=== PATIENT | male | born 1960 | race American Indian/Alaskan Native ===

== ENCOUNTER 2017-09-16 14:47 | Emergency (ER) | payer MEDICARE ==
[2017-09-16 15:03] VITALS: BP 156/89
[2017-09-16] MEDS ORDERED: MOTRIN PO ONE (19:05)
[2017-09-16] MEDS ORDERED: TYLENOL PO ONE (19:05)
--- NOTE | 2017-09-16 20:17 | Emergency Department Report ---
ED General Adult HPI - General Chief complaint: Pain General Stated complaint: RIGHT FOOT PAIN/GUMS SORE Time Seen by Provider: 09/16/17 18:10 Source: patient Mode of arrival: Ambulatory Limitations: No Limitations - History of Present Illness Initial comments: Patient is a 57-year-old male past history of HIV who presents with right foot pain and sore gums. She states that pain is a 7 out of 10 located in his foot and his gums nothing makes the foot pain better. However walking and eating makes the gum pain worse. He states that these problems have been going on for the last. He denies having any fevers or chills or any night sweats. Severity scale (0 -10): 0 - Related Data Previous Rx's Medication Instructions Recorded Last Taken Type Abacavir Sulfate/Lamivudine 1 each PO DAILY #30 tablet 03/06/16 Unknown Rx [Epzicom TAB] Clindamycin [Clindamycin CAP] 150 mg PO QID #30 capsule 07/18/16 Unknown Rx HYDROcodone/APAP 5-325 [[place] 1 each PO Q6HR PRN #14 tablet 07/18/16 Unknown Rx 5/325] Abacavir Sulfate/Lamivudine 1 each PO DAILY #30 tablet 09/16/17 Unknown Rx [Abacavir-Lamivudine 600-300 mg] Darunavir [Prezista] 600 mg PO BID #60 tablet 09/16/17 Unknown Rx Diclofenac Sodium [Voltaren] 100 gm TP Q6H #1 gel..gram. 09/16/17 Unknown Rx Losartan [Cozaar] 25 mg PO QDAY #30 tablet 09/16/17 Unknown Rx Ritonavir [Norvir] 100 mg PO BID #60 cap 09/16/17 Unknown Rx Allergies Allergy/AdvReac Type Severity Reaction Status Date / Time No Known Allergies Allergy Verified 07/17/16 23:33 ED Review of Systems ROS: Stated complaint: RIGHT FOOT PAIN/GUMS SORE Other details as noted in HPI Constitutional: denies: chills, fever Eyes: denies: eye pain, eye discharge, vision change ENT: other (sore gums ). denies: ear pain, throat pain Respiratory: denies: cough, shortness of breath, wheezing Cardiovascular: denies: chest pain, palpitations Endocrine: no symptoms reported Gastrointestinal: denies: abdominal pain, nausea, diarrhea Genitourinary: denies: urgency, dysuria Musculoskeletal: other (foot pain ). denies: back pain, joint swelling, arthralgia Skin: denies: rash, lesions Neurological: denies: headache, weakness, paresthesias Psychiatric: denies: anxiety, depression Hematological/Lymphatic: denies: easy bleeding, easy bruising ED Past Medical Hx - Past Medical History Previous Medical History?: Yes Hx Hypertension: Yes Hx HIV: Yes Additional medical history: gastroparesis - Surgical History Past Surgical History?: Yes Additional Surgical History: hemrrhoid. right knee surgery - Social History Smoking Status: Current Every Day Smoker Substance Use Type: Alcohol, Prescribed - Medications Home Medications: Home Medications Medication Instructions Recorded Confirmed Last Taken Type Abacavir Sulfate/Lamivudine 1 each PO DAILY #30 tablet 03/06/16 07/18/16 Unknown Rx [Epzicom TAB] Clindamycin [Clindamycin CAP] 150 mg PO QID #30 capsule 07/18/16 Unknown Rx HYDROcodone/APAP 5-325 [[place] 1 each PO Q6HR PRN #14 tablet 07/18/16 Unknown Rx 5/325] Abacavir Sulfate/Lamivudine 1 each PO DAILY #30 tablet 09/16/17 Unknown Rx [Abacavir-Lamivudine 600-300 mg] Darunavir [Prezista] 600 mg PO BID #60 tablet 09/16/17 Unknown Rx Diclofenac Sodium [Voltaren] 100 gm TP Q6H #1 gel..gram. 09/16/17 Unknown Rx Losartan [Cozaar] 25 mg PO QDAY #30 tablet 09/16/17 Unknown Rx Ritonavir [Norvir] 100 mg PO BID #60 cap 09/16/17 Unknown Rx ED Physical Exam - General Limitations: No Limitations General appearance: alert, in no apparent distress - Head Head exam: Present: atraumatic, normocephalic - Eye Eye exam: Present: normal appearance - ENT ENT exam: Present: mucous membranes moist - Neck Neck exam: Present: normal inspection - Respiratory Respiratory exam: Present: normal lung sounds bilaterally. Absent: respiratory distress - Cardiovascular Cardiovascular Exam: Present: regular rate, normal rhythm. Absent: systolic murmur, diastolic murmur, rubs, gallop - GI/Abdominal GI/Abdominal exam: Present: soft, normal bowel sounds - Rectal Rectal exam: Present: deferred - Extremities Exam Extremities exam: Present: normal inspection - Back Exam Back exam: Present: normal inspection - Neurological Exam Neurological exam: Present: alert, oriented X3 - Psychiatric Psychiatric exam: Present: normal affect, normal mood - Skin Skin exam: Present: warm, dry, intact, normal color. Absent: rash ED Course Vital Signs 09/16/17 09/16/17 09/16/17 14:57 19:16 19:17 Temperature 98.4 F Pulse Rate 98 H Respiratory 20 18 18 Rate Blood Pressure 156/89 O2 Sat by Pulse 97 Oximetry ED Medical Decision Making - Medical Decision Making Chief medical diagnosis: Neuropathy Medical diagnosis: Pulpitis, foot wound I will give patient tylenol and motrin I will get patient oral pain medication and refill his HIV medication. Patient needs to follow-up with an infectious disease doctor and patient can follow-up for his foot pain. Patient became angry when not given any pain medication for his gums. Pt has no ulcers and I discussed with patient at length that he needs to follow-up with a Dentist. Critical care attestation.: If time is entered above; I have spent that time in minutes in the direct care of this critically ill patient, excluding procedure time. ED Disposition Clinical Impression: Right foot pain, Sore gums Disposition: - TO HOME OR SELFCARE Is pt being admited?: No Does the pt Need Aspirin: No Condition: Stable Instructions: Arthralgia (ED), Human Immunodeficiency Virus Infection (ED) Prescriptions: Abacavir Sulfate/Lamivudine [Abacavir-Lamivudine 600-300 mg] 1 each PO DAILY # 30 tablet Darunavir [Prezista] 600 mg PO BID #60 tablet Diclofenac Sodium [Voltaren] 100 gm TP Q6H #1 gel..gram. Losartan [Cozaar] 25 mg PO QDAY #30 tablet Ritonavir [Norvir] 100 mg PO BID #60 cap Referrals: MAHI VALDEZ MD [Staff Physician] - 3-5 Days EVELIO VELEZ MD [Staff Physician] - 3-5 Days
== END 2017-09-16 20:31 | disposition home or self-care (01) ==
LOC: ED 14:47
DX: M79.671 Pain in right foot (principal); K13.70 Unspecified lesions of oral mucosa; I10 Essential (primary) hypertension; F17.200 Nicotine dependence, unspecified, uncomplicated
CPT/HCPCS: 99282

== ENCOUNTER 2018-10-31 10:25 | Emergency (ER) | payer MEDICARE ==
[2018-10-31 11:33] LABS: Basophils % (Auto) 0.6 % (0.0-1.8); Eosinophils # (Auto) 0.2 K/mm3 (0.0-0.4); Eosinophils % (Auto) 4.9 % (0.0-4.3); Hematocrit 41.9 % (35.5-45.6); Hemoglobin 13.5 gm/dl (11.8-15.2); Lymphocytes # (Auto) 0.7 K/mm3 (1.2-5.4); Lymphocytes % (Auto) 16.6 % (13.4-35.0); Mean Corpuscular HGB Conc 32 % (32-34); Mean Corpuscular Volume 83 fl (84-94); Monocytes # (Auto) 0.6 K/mm3 (0.0-0.8); Monocytes % (Auto) 15.2 % (0.0-7.3); Platelet Count 208 K/mm3 (140-440); Red Blood Count 5.03 M/mm3 (3.65-5.03); Red Cell Distribution Width 15.3 % (13.2-15.2)
[2018-10-31 11:36] LABS: INR 0.88 (0.87-1.13)
[2018-10-31 11:38] LABS: Alanine Aminotransferase 21 units/L (7-56); Albumin 3.5 g/dL (3.9-5); BUN/Creatinine Ratio 15; Blood Urea Nitrogen 19 mg/dL (9-20); Calcium 8.7 mg/dL (8.4-10.2); Hemolysis Index 8
--- NOTE | 2018-10-31 12:28 | Cat Scan Report ---
FINAL REPORT EXAM: CT ABDOMEN PELVIS WO CON HISTORY: RIGHT QUAD ABDOMINAL PAIN. ? BRUISING TO FLANK TECHNIQUE: Noncontrast CT of the abdomen and pelvis performed. No IV or gastrointestinal contrast w as administered. Axial images and coronal and sagittal reformatted images were obtained. PRIORS: None. FINDINGS: The visualized aspects of the lung bases are clear. Within the limitations of a non-enhanced study, the visualized liver, spleen, pancreas, adrenal gland s and kidneys demonstrate no significant abnormalities. There is no abdominal aortic aneurysm. There are aortoiliac atherosclerotic calcifications. There is cholelithiasis. The appendix is normal. There are no abnormal fluid collections seen. There is no free intraperitoneal air. The bladder is unremarkable. There is no abnormal pelvic mass or fluid collections seen. IMPRESSION: There is likely cholelithiasis. No other significant finding.
--- NOTE | 2018-10-31 12:37 | Emergency Department Report ---
ED General Adult HPI - General Chief complaint: Abdominal Pain Stated complaint: RASH ALL OVER/BODY PAIN Time Seen by Provider: 10/31/18 12:04 Source: patient Mode of arrival: Ambulatory Limitations: No Limitations - History of Present Illness Initial comments: 8-year-old male HIV positive who complains of right flank pain. He said no dysuria or any symptoms. He's had a rash. Since he noticed the rash ambulance. However, the triage note says "that appears to be bruising 2 weeks". Patient denies injury. He admits that he has been noncompliant with his HIV medicine for 3 weeks. He states that he is not from this area. However records indicate that he has been getting prescriptions for his HIV medicines here since September 16. He is asking for renewal of his HIV medicines even though he tells me he has an appointment with infectious disease clinic tomorrow. He denies fever or chills respiratory symptoms and cough. -: Gradual, hour(s) (or days depending on version of the history) Location: right (flank) Severity scale (0 -10): 0 - Related Data Previous Rx's Medication Instructions Recorded Last Taken Type Abacavir Sulfate/Lamivudine 1 each PO DAILY #30 tablet 03/06/16 Unknown Rx [Epzicom TAB] Clindamycin [Clindamycin CAP] 150 mg PO QID #30 capsule 07/18/16 Unknown Rx HYDROcodone/APAP 5-325 [[place] 1 each PO Q6HR PRN #14 tablet 07/18/16 Unknown Rx 5/325] Abacavir Sulfate/Lamivudine 1 each PO DAILY #30 tablet 09/16/17 Unknown Rx [Abacavir-Lamivudine 600-300 mg] Darunavir [Prezista] 600 mg PO BID #60 tablet 09/16/17 Unknown Rx Diclofenac Sodium [Voltaren] 100 gm TP Q6H #1 gel..gram. 09/16/17 Unknown Rx Losartan [Cozaar] 25 mg PO QDAY #30 tablet 09/16/17 Unknown Rx Ritonavir [Norvir] 100 mg PO BID #60 cap 09/16/17 Unknown Rx Tramadol HCl [Ultram] 50 mg PO Q6H #10 tablet 10/31/18 Unknown Rx Valacyclovir HCl [Valtrex] 1,000 mg PO BID #20 tab 10/31/18 Unknown Rx Allergies Allergy/AdvReac Type Severity Reaction Status Date / Time No Known Allergies Allergy Verified 07/17/16 23:33 ED Review of Systems ROS: Stated complaint: RASH ALL OVER/BODY PAIN Other details as noted in HPI Constitutional: denies: chills, fever Eyes: denies: eye pain, eye discharge, vision change ENT: denies: ear pain, throat pain Respiratory: denies: cough, shortness of breath, wheezing Cardiovascular: denies: chest pain, palpitations Endocrine: no symptoms reported Gastrointestinal: denies: abdominal pain, nausea, diarrhea Genitourinary: denies: urgency, dysuria Musculoskeletal: back pain. denies: joint swelling, arthralgia Skin: as per HPI, rash. denies: lesions Neurological: denies: headache, weakness, paresthesias Psychiatric: denies: anxiety, depression Hematological/Lymphatic: denies: easy bleeding, easy bruising ED Past Medical Hx - Past Medical History Hx Hypertension: Yes Hx HIV: Yes Additional medical history: gastroparesis - Surgical History Past Surgical History?: Yes Additional Surgical History: hemrrhoid. right knee surgery - Social History Smoking Status: Current Every Day Smoker Substance Use Type: None - Medications Home Medications: Home Medications Medication Instructions Recorded Confirmed Last Taken Type Abacavir Sulfate/Lamivudine 1 each PO DAILY #30 tablet 03/06/16 07/18/16 Unknown Rx [Epzicom TAB] Clindamycin [Clindamycin CAP] 150 mg PO QID #30 capsule 07/18/16 Unknown Rx HYDROcodone/APAP 5-325 [[place] 1 each PO Q6HR PRN #14 tablet 07/18/16 Unknown Rx 5/325] Abacavir Sulfate/Lamivudine 1 each PO DAILY #30 tablet 09/16/17 Unknown Rx [Abacavir-Lamivudine 600-300 mg] Darunavir [Prezista] 600 mg PO BID #60 tablet 09/16/17 Unknown Rx Diclofenac Sodium [Voltaren] 100 gm TP Q6H #1 gel..gram. 09/16/17 Unknown Rx Losartan [Cozaar] 25 mg PO QDAY #30 tablet 09/16/17 Unknown Rx Ritonavir [Norvir] 100 mg PO BID #60 cap 09/16/17 Unknown Rx Tramadol HCl [Ultram] 50 mg PO Q6H #10 tablet 10/31/18 Unknown Rx Valacyclovir HCl [Valtrex] 1,000 mg PO BID #20 tab 10/31/18 Unknown Rx ED Physical Exam - General Limitations: No Limitations General appearance: alert, in no apparent distress - Head Head exam: Present: atraumatic, normocephalic - Eye Eye exam: Present: normal appearance. Absent: scleral icterus - ENT ENT exam: Present: mucous membranes moist - Neck Neck exam: Present: normal inspection. Absent: tenderness, meningismus - Respiratory Respiratory exam: Present: normal lung sounds bilaterally. Absent: respiratory distress - Cardiovascular Cardiovascular Exam: Present: regular rate, normal rhythm. Absent: systolic murmur, diastolic murmur, rubs, gallop - GI/Abdominal GI/Abdominal exam: Present: soft, normal bowel sounds. Absent: distended, tenderness, guarding, rebound, rigid - Rectal Rectal exam: Present: deferred - Extremities Exam Extremities exam: Present: normal inspection. Absent: calf tenderness - Back Exam Back exam: Present: normal inspection. Absent: CVA tenderness (R), CVA tendern ess (L) - Neurological Exam Neurological exam: Present: alert, oriented X3, CN II-XII intact, normal gait. Absent: motor sensory deficit - Psychiatric Psychiatric exam: Present: normal affect, normal mood - Skin Skin exam: Present: warm, dry, intact, other (there is a radicular rash involving the lumbar dermatomes on the right. It is a bit purpuric in appearance.). Absent: rash ED Course Vital Signs 10/31/18 10/31/18 10/31/18 10:37 12:00 12:01 Temperature 97.4 F L Pulse Rate 117 H 80 Respiratory 18 18 18 Rate Blood Pressure 153/93 Blood Pressure 136/77 [Right] O2 Sat by Pulse 100 98 98 Oximetry - Reevaluation(s) Reevaluation #1: I am uncertain the nature of this rash. It could be Kaposi's sarcoma. Being purpuric like this zoster is less likely. Patient says that he has had infectious disease clinic appointment tomorrow. I will give him a prescription for Zovirax. He needs to keep his appointment with his IDC this time. He will not be given HIV meds. Indeed I do not know which one of these meds all are all of them are appropriate at this time. 10/31/18 12:37 ED Medical Decision Making - Lab Data Result diagrams: 10/31/18 11:14 10/31/18 11:14 - Radiology Data Radiology results: report reviewed (CT possible Cholelithiasis no acute process) Critical care attestation.: If time is entered above; I have spent that time in minutes in the direct care of this critically ill patient, excluding procedure time. ED Disposition Clinical Impression: Dermatitis, Flank pain Disposition: - TO HOME OR SELFCARE Is pt being admited?: No Does the pt Need Aspirin: No Condition: Stable Instructions: Eczema (ED), Herpes Zoster (ED), Human Immunodeficiency Virus Infection (ED) Additional Instructions: This rash may be shingles. However it could be other things associated with HIV. It is essential that you go to the infectious disease doctor tomorrow. They will determine what medicines are appropriate. I going to give you something for pain and something for shingles. However other possible causes exist and it is essential you coordinate your chair appropriately with your infectious disease doctor. Zovirax as a medicine for shingles. Ultram is a medicine for pain. You may use it every 6 hours as needed. Prescriptions: Tramadol HCl [Ultram] 50 mg PO Q6H #10 tablet Valacyclovir HCl [Valtrex] 1,000 mg PO BID #20 tab Referrals: JENNI DUONG [Primary Care Provider] - 3-5 Days Time of Disposition: 12:44
[2018-10-31] MEDS ORDERED: ULTRAM PO ONE (13:24)
[2018-10-31] MEDS ORDERED: ULTRAM ONE (13:27)
[2018-10-31 15:28] VITALS: BP 166/100
== END 2018-10-31 13:28 | disposition home or self-care (01) ==
LOC: ED 10:25
DX: L30.9 Dermatitis, unspecified (principal); R10.9 Unspecified abdominal pain; I10 Essential (primary) hypertension; F17.200 Nicotine dependence, unspecified, uncomplicated; Z79.899 Other long term (current) drug therapy
CPT/HCPCS: 36415; 74176; 80053; 83690; 83735; 85025; 85610; 85730

== ENCOUNTER 2018-11-05 10:13 | Emergency (ER) | payer MEDICARE ==
--- NOTE | 2018-11-05 11:48 | Emergency Department Report ---
HPI - General Chief Complaint: Pain General Time Seen by Provider: 11/05/18 11:38 - HPI HPI: 58-year-old -N[place]alese male presents to the emergency department as a follow-up to a rash that he had and medications he was prescribed from a visit here on Thursday, 2 days ago. The patient has a history of HIV for which she is noncompliant about any medications. He was seen here by one of my colleagues who diagnosed him with possible shingles versus some other skin condition related to his HIV. He was discharged home on Zovirax and tramadol. The patient says that he only got one of the prescriptions, the antiviral medication. In looking into the [place] prescription monitoring system, it appears that the medication was "filled" on 10/31/18 at [facility] pharmacy on [address]. This may not necessarily mean that the patient picked up the medication but the prescription was at least turned in. The patient says that he has an appointment with his infectious disease physician on the , in 6 days. He says that the rash appears to be improving. ED Past Medical Hx - Past Medical History Previous Medical History?: Yes Hx Hypertension: Yes Hx HIV: Yes Additional medical history: gastroparesis - Surgical History Past Surgical History?: Yes Additional Surgical History: hemrrhoid. right knee surgery - Social History Smoking Status: Current Every Day Smoker - Medications Home Medications: Home Medications Medication Instructions Recorded Confirmed Last Taken Type Abacavir Sulfate/Lamivudine 1 each PO DAILY #30 tablet 03/06/16 07/18/16 Unknown Rx [Epzicom TAB] HYDROcodone/APAP 5-325 [[place] 1 each PO Q6HR PRN #14 tablet 07/18/16 Unknown Rx 5/325] RX: Clindamycin [Clindamycin CAP] 150 mg PO QID #30 capsule 07/18/16 Unknown Rx Abacavir Sulfate/Lamivudine 1 each PO DAILY #30 tablet 09/16/17 Unknown Rx [Abacavir-Lamivudine 600-300 mg] Diclofenac Sodium [Voltaren] 100 gm TP Q6H #1 gel..gram. 09/16/17 Unknown Rx RX: Darunavir [Prezista] 600 mg PO BID #60 tablet 09/16/17 Unknown Rx RX: Losartan [Cozaar] 25 mg PO QDAY #30 tablet 09/16/17 Unknown Rx RX: Ritonavir [Norvir] 100 mg PO BID #60 cap 09/16/17 Unknown Rx Tramadol HCl [Ultram] 50 mg PO Q6H #10 tablet 10/31/18 Unknown Rx Valacyclovir HCl [Valtrex] 1,000 mg PO BID #20 tab 10/31/18 Unknown Rx ED Review of Systems ROS: Stated complaint: MED REFILL Other details as noted in HPI Comment: All other systems reviewed and negative Constitutional: denies: chills, fever Eyes: denies: eye pain, vision change ENT: denies: ear pain, throat pain Respiratory: denies: cough, shortness of breath Cardiovascular: denies: palpitations, edema Gastrointestinal: denies: abdominal pain, vomiting Genitourinary: denies: dysuria, discharge Musculoskeletal: denies: back pain, arthralgia Skin: rash, lesions Neurological: denies: headache, weakness Physical Exam - Physical Exam Vital Signs: Vital Signs 11/05/18 10:27 Temperature 98.4 F Pulse Rate 84 Respiratory 16 Rate Blood Pressure 146/90 O2 Sat by Pulse 98 Oximetry Physical Exam: GENERAL: The patient is well-developed well-nourished. HEENT: Normocephalic. Atraumatic. Patient has moist mucous membranes. EYES: Extraocular motions are intact. NECK: Supple. Trachea is midline. CHEST/LUNGS: Clear to auscultation. There is no respiratory distress noted. HEART/CARDIOVASCULAR: Regular. There is no tachycardia. There is no obvious murmur. ABDOMEN: Abdomen is soft, nontender. Patient has normal bowel sounds. There is no abdominal distention. SKIN: The patient has multiple areas of darkening skin and/or dense lesions starting to the right middle abdomen and going around his flank towards the back. There is no bleeding, weeping, crusting, drainage. NEURO: The patient is awake, alert, and oriented. The patient is cooperative. The patient has no focal neurologic deficits. The patient has normal speech. MUSCULOSKELETAL: There is no tenderness or deformity. There is no evidence of acute injury. ED Course Vital Signs 11/05/18 10:27 Temperature 98.4 F Pulse Rate 84 Respiratory 16 Rate Blood Pressure 146/90 O2 Sat by Pulse 98 Oximetry ED Medical Decision Making - Medical Decision Making The patient was here a few days ago for a painful rash going from the right flank towards the back. He was treated as if it could be shingles and was given Zovirax and some pain medication. Today the patient does have these dark lesions to that area. Given the fact that the patient was here a few days ago, if it was shingles I would expect to see some change in the rash such as some redness, crusting. However shingles is still on the differential. The patient has been taking the Zovirax. The patient says that he was not prescribed pain medication. However he was given a prescription for tramadol. I checked the [place] prescription monitoring system and it says that it was filled on 10/31/18 at [facility] on to her [place]. This may not necessarily mean that the patient picked up the medication but it should represent that it was dropped off at the pharmacy. The patient will go check with the pharmacy regarding the pain medication. He says he has an appointment with his infectious disease physician in 6 days. He will return to the ER with any worsening of his symptoms or any acute distress. - Differential Diagnosis shingles, nonspecific dermatitis Critical Care Time: No Critical care attestation.: If time is entered above; I have spent that time in minutes in the direct care of this critically ill patient, excluding procedure time. ED Disposition Clinical Impression: Dermatitis, Flank pain Disposition: -01 TO HOME OR SELFCARE Is pt being admited?: No Condition: Stable Instructions: Acute Rash (ED) Additional Instructions: Please follow-up with your infectious disease physician. Please contact [facility] to inquire about your pain medication. Return to the emergency Department with any worsening of your symptoms or any acute distress. Referrals: MAHI VALDEZ MD [Primary Care Provider] - 3-5 Days Time of Disposition: 11:48
== END 2018-11-05 11:55 | disposition home or self-care (01) ==
LOC: ED 10:13
CPT/HCPCS: 99282